=== PATIENT | female | born 1975 | race Caucasian/White ===

== ENCOUNTER 2020-07-12 13:22 | Emergency (ER) | payer OTHER ==
[~2020-07-12 13:22] MED LIST: COLACE100 MG PO; PROTONIX 40MG T40 MG PO; VITAMIN D400 UNIT PO; XANAX0.25 MG PO; ZANTAC150 MG PO; ZOFRAN4 MG PO
[2020-07-12 14:15] LABS: BILIRUBIN NEGATIVE (NEGATIVE); BLOOD NEGATIVE Ery/uL (NEGATIVE); CLARITY CLEAR (CLEAR); COLOR YELLOW (YELLOW); GLUCOSE (U) NORMAL (NORMAL); LEUKOCYTES NEGATIVE Leu/uL (NEGATIVE); NITRITE NEGATIVE (NEGATIVE); PROTEIN NEGATIVE (NEGATIVE); SPECIFIC GRAVITY <=1.005 (1.001-1.030); UROBILINOGEN 0.2 mg/dL (0.2-1.0)
[2020-07-12] MEDS ORDERED: NAPROXEN500 MG PO (14:40)
== END 2020-07-12 19:04 | disposition home or self-care (01) ==
LOC: FER 13:22
PROVIDERS: Emergency Medicine
DX: M50.322 Other cervical disc degeneration at C5-C6 level (principal)
CPT/HCPCS: 72050; 81003; 93005; J1885

== ENCOUNTER 2020-12-13 10:56 | Emergency (ER) | payer OTHER ==
[~2020-12-13 10:56] MED LIST changes: +NAPROXEN500 MG PO
[2020-12-16] MEDS ORDERED: CARAFATE S500 MG/TSP PO (13:22)
== END 2020-12-13 14:47 | disposition home or self-care (01) ==
LOC: FER 10:56
DX: R13.10 Dysphagia, unspecified (principal); K21.9 Gastro-esophageal reflux disease without esophagitis
CPT/HCPCS: 87339; 99284